=== PATIENT | male | born 1965 | race Caucasian/White ===

== ENCOUNTER 2017-09-24 22:55 | Emergency (ER) | payer BC ==
[2017-09-24] MEDS ORDERED: ASPIRIN 81 MG TABLET, CHEWABLE PO ONE (23:26)
[2017-09-24 23:51] LABS: ABSOLUTE EOSINOPHILS # (AUTO) 0.2 10^3/uL (0.0-0.6); ABSOLUTE LYMPHOCYTES (AUTO) 1.8 10^3/uL (0.5-4.7); ABSOLUTE MONOCYTES (AUTO) 0.6 10^3/uL (0.1-1.4); ABSOLUTE NEUT (AUTO) 5.8 10^3/uL (1.7-8.2); BASOPHILS % (AUTO) 0.4 % (0-2); HEMATOCRIT 44.6 % (37.9-51.0); HEMOGLOBIN 15.6 g/dL (13.5-17.0); HGB HCT DIFFERENCE 2.2; LYMPHOCYTES % (AUTO) 21.4 % (13-45); MEAN CORPUSCULAR HEMOGLOBIN 29.7 pg (27.0-33.4); MEAN CORPUSCULAR HGB CONC 34.9 g/dL (32.0-36.0); MEAN CORPUSCULAR VOLUME 85 fl (80-97); MONOCYTES % (AUTO) 7.5 % (3-13); RED BLOOD COUNT 5.24 10^6/uL (4.35-5.55); RED CELL DISTRIBUTION WIDTH 13.4 % (11.5-14.0); SEGMENTED NEUTROPHILS % (AUTO) 68.7 % (42-78); WHITE BLOOD COUNT 8.5 10^3/uL (4.0-10.5)
[2017-09-25 00:01] LABS: ALANINE AMINOTRANSFERASE 45 U/L (21-72); ALBUMIN 4.6 g/dL (3.5-5.0); ALKALINE PHOSPHATASE 61 U/L (38-126); ANION GAP 14 (5-19); ASPARTATE AMINO TRANSFERASE 26 U/L (17-59); BILIRUBIN,DIRECT 0.4 mg/dL (0.0-0.4); BILIRUBIN,TOTAL 0.8 mg/dL (0.2-1.3); BLOOD UREA NITROGEN 12 mg/dL (7-20); CALCIUM 9.4 mg/dL (8.4-10.2); CARBON DIOXIDE 24 mmol/L (22-30); CHLORIDE 104 mmol/L (98-107); CREATINE KINASE 120 U/L (55-170); CREATININE RESULT 1.09 mg/dL (0.52-1.25); GLUCOSE 96 mg/dL (75-110); POTASSIUM 3.9 mmol/L (3.6-5.0); SODIUM 141.8 mmol/L (137-145); TOTAL PROTEIN 7.7 g/dL (6.3-8.2)
--- NOTE | 2017-09-25 00:09 | RADIOLOGY REPORT (SQ) ---
EXAM DESCRIPTION: CHEST SINGLE VIEW COMPLETED DATE/TIME: 09/24/2017 11:47 pm REASON FOR STUDY: CP COMPARISON: None. EXAM PARAMETERS: NUMBER OF VIEWS: One view. TECHNIQUE: Single frontal radiographic view of the chest acquired. RADIATION DOSE: NA LIMITATIONS: None. FINDINGS: LUNGS AND PLEURA: No opacities, masses or pneumothorax. No pleural effusion. MEDIASTINUM AND HILAR STRUCTURES: No masses. Contour normal. HEART AND VASCULAR STRUCTURES: Heart normal in size. Normal vasculature. BONES: No acute findings. HARDWARE: None in the chest. OTHER: No other significant finding. IMPRESSION: NO ACUTE RADIOGRAPHIC FINDING IN THE CHEST. TECHNICAL DOCUMENTATION: JOB ID: [id number] [place]-72 2010 [employer]- All Rights Reserved
[2017-09-25 00:11] LABS: CREATINE KINASE MB 1.05 ng/mL (<4.55)
--- NOTE | 2017-09-25 00:42 | ER Document Report ---
ED General - General Chief Complaint: Chest Pain Stated Complaint: CHEST DISCOMFORT Time Seen by Provider: 09/25/17 00:36 Notes: Patient is 52-year-old male presents with complaint of intermittent chest pain. He says the pain first started last week. He says he was eating some food and he felt as if he was having difficulty swallowing the food. He says he has had this happen several times when he eats stuff that he is allergic to. He says is allergic to many foods. He says and cooked a new dish and he thinks he may be allergic to 1 of the spices. He said during this episode he felt just like his previous allergic reactions except for he had more prolonged symptoms with some pain in his chest that he felt was worse esophagus was close radiating back to his back. He took Benadryl and Pepcid and felt improved. He says since then he has had some recurrence of intermittent chest pain but has also had a lot of indigestion at the same time. He says he had a lot of heartburn but occasionally will have some intermittent sharp chest pains in the middle of his chest pain to his back with slight pressure. He said the symptoms usually last anywhere from 30 minutes to an hour. He is followed by Dr. Zhang Encarnacion. He has a history of pre-hypertension but does not take medications for this. He is not a smoker. He does have family history of heart disease. His father has several stents and had a heart attack when he was in his 50s. He has no other family history of heart disease that is aware of. None of his siblings have heart disease. Is not diabetic. No high cholesterol. No other complaints at this time. Patient says it does seem that most times his pain is triggered by eating. He does not have a history of cardiac stress testing. No other complaints at this time. TRAVEL OUTSIDE OF THE [place] IN LAST 30 DAYS: No - Related Data Allergies/Adverse Reactions: No Known Drug Allergies Allergy (Verified 09/24/17 23:42) Past Medical History - Social History Smoking Status: Never Smoker Chew tobacco use (# tins/day): No Frequency of alcohol use: None Drug Abuse: None Family History: Reviewed & Not Pertinent Patient has suicidal ideation: No Patient has homicidal ideation: No Renal/ Medical History: Denies: Hx Peritoneal Dialysis Review of Systems - Review of Systems Notes: My Normal Review Basic REVIEW OF SYSTEMS: CONSTITUTIONAL : Denies fever, chills, or sweats. Denies recent illness. EENT: Denies eye, ear, throat, or mouth pain or symptoms. Denies nasal or sinus congestion. CARDIOVASCULAR: intermittent chest pain RESPIRATORY: Denies cough, cold, or chest congestion. Denies shortness of breath, difficulty breathing, or wheezing. GASTROINTESTINAL: Denies abdominal pain. Denies nausea, vomiting, or diarrhea. MUSCULOSKELETAL: Denies neck or back pain or joint pain or swelling. SKIN: Denies rash or skin lesions. NEUROLOGICAL: Denies altered mental status or loss of consciousness. Denies headache. Denies weakness or paralysis or loss of use of either side. Denies problems with gait or speech. Denies sensory or motor loss. ALL OTHER SYSTEMS REVIEWED AND NEGATIVE. Physical Exam - Vital signs Vitals: Temp Pulse Resp BP Pulse Ox 97.7 F 93 18 130/75 H 96 09/24/17 22:56 09/24/17 22:56 09/24/17 22:56 09/24/17 22:56 09/24/17 22:56 - Notes Notes: General Appearance: Well nourished, alert, cooperative, no acute distress, no obvious discomfort. Vitals: reviewed, See vital signs table. Head: no swelling or tenderness to the head Eyes: PERRL, EOMI, Conjuctiva clear Mouth: No decreasd moisture Lungs: No wheezing, No rales, No rhonci, No accessory muscle use, good air exchange bilaterally. Heart: Normal rate, Regular rythm, No murmur, no rub Chest wall: No reproducible pain to palpation of chest wall. Abdomen: Normal BS, soft, No rigidity, No abdominal tenderness, No guarding, no rebound, no abdominal masses, no organomegaly Extremities: strength 5/5 in all extremities, good pulses in all extremities, no swelling or tenderness in the extremities, no edema. Skin: warm, dry, appropriate color, no rash Neuro: speech clear, oriented x 3, normal affect, responds appropriately to questions. Course - Re-evaluation Re-evalutation: 09/25/17 01:22 I suspect the patient's chest pain is most likely GI related. Most his pain is reproduced with eating and all his pain started happening after he had the episode of eating that food that caused some difficulty swallowing. He does have risk factors and that he has a family history with his father having an AR in his 50s. I therefore still did cardiac enzymes and EKG. These are both negative. His heart score is a 2. I talked to the patient about staying in the hospital versus outpatient follow-up. I informed him with a heart score of 2 that his chances of a cardiac event in the next 6 weeks is around 1%. Patient says he feels great and has no chest pain currently and would much rather follow up with materials manager for an outpatient stress test was posting in the ER. I think this is an appropriate decision. I informed him that even though it is unlikely that his chest pain is cardiac related that he must of low threshold to return to the ER if he has severe chest pain, difficulty breathing, sweating, or if he feels unwell. Patient agrees with plan and will be discharged home. Dictation of this chart was performed using voice recognition software; therefore, there may be some unintended grammatical errors. - Vital Signs Vital signs: Temp Pulse Resp BP Pulse Ox 97.7 F 93 24 H 120/80 98 09/24/17 22:56 09/24/17 22:56 09/25/17 00:01 09/25/17 00:01 09/25/17 00:01 - Laboratory Result Diagrams: 09/24/17 23:39 09/24/17 23:39 - EKG Interpretation by Me Additional EKG results interpreted by me: 09/25/17 00:41 EKG is reviewed and interpreted by me. EKG shows normal sinus rhythm with rate of [address] segment elevation or depression. No ischemic T-wave inversions. MI interval, QRS duration, QTc intervals are within normal range. No old EKG available for comparison. Discharge - Discharge Clinical Impression: Chest pain Qualifiers: Chest pain type: unspecified Qualified Code(s): R07.9 - Chest pain, unspecified Condition: Good Disposition: HOME, SELF-CARE Additional Instructions: You cardiac enzymes and EKG were normal today. Currently there is no evidence of you having damage to your heart. Not all testing is 100%, therefore, you still need to follow up outpatiently. Please call Dr. Powers's office to make a follow up appointment for reevaluation and stress test. Please take a coated 81mg aspirin every day. Please take Prilosec 20mg a day. You can buy the over the counter Prilosec or use the prescription written. Please return to the ER immediately if you have worsening recurrent chest pain, difficulty breathing, sweating, or feel unwell. Prescriptions: Omeprazole Magnesium [Prilosec Otc] 20 mg PO DAILY #30 tablet.dr Referrals: TRACEY ARCE MD [Primary Care Provider] - Follow up in 3-5 days YEIMI POWERS MD [ACTIVE STAFF] - Follow up in 3-5 days (call Dr. Powers 's office tomorrow to set up an appointment for reevaluaiton and outpatient stress test.)
[2017-09-25 00:50] LABS: TROPONIN I < 0.012 ng/mL
[2017-09-25 01:16] VITALS: BP 118/85
--- NOTE | 2017-09-25 07:54 | EKG REPORT ---
SEVERITY:- NORMAL ECG - SINUS RHYTHM : Confirmed by: Rajat Kline MD 25-Sep-2017 07:53:18
== END 2017-09-25 01:24 | disposition home or self-care (01) ==
LOC: ER 22:55
DX: R07.89 Other chest pain (principal); K30 Functional dyspepsia; Z91.018 Allergy to other foods; Z82.49 Family history of ischemic heart disease and other diseases of the circulatory system
CPT/HCPCS: 36415; 71010; 80053; 82550; 82553; 84484; 85025; 93005; 93010; 99285